=== PATIENT | female | born 1955 | race Caucasian/White ===

== ENCOUNTER 2017-08-27 04:50 | Day surgery (SDC) | payer OTHER ==
[~2017-08-27 04:50] MED LIST: ASA81 MG PO; CARAFATE1 GM PO; CIPRO500 MG PO; ENALAPRIL MALEA20 MG PO; LASIX20 MG PO; LIPITOR20 MG PO; LISINOPRIL20 MG PO; LoPRESSOR 50MG TAB PO; ULTRACET PO; ZANTAC 2525 MG; ZANTAC150 M3 PO
== END 2017-08-27 13:40 | disposition home or self-care (01) ==
LOC: CIR.AMB 04:50
DX: K43.2 Incisional hernia without obstruction or gangrene (principal)

== ENCOUNTER 2019-05-20 10:57 | Emergency (ER) | payer OTHER ==
[~2019-05-20] VITALS: Ht 154.9 cm; Wt 106.1 kg
== END 2019-05-20 21:20 | disposition home or self-care (01) ==
LOC: ER 10:57
DX: K52.1 Toxic gastroenteritis and colitis (principal)